=== PATIENT | female | born 1985 | race Caucasian/White ===

== ENCOUNTER 2017-05-30 14:15 | Emergency (ER) | payer OTHER ==
[~2017-05-30] VITALS: Ht 167.6 cm; Wt 100.7 kg
[2017-05-30] MEDS ORDERED: ULTRAM50 MG PO (14:25)
[2017-05-30] MEDS ORDERED: MINOCYCLINE HC100 M1 PO (14:27)
[2017-05-30] MEDS ORDERED: KETOROLAC TROME10 MG PO (17:25)
== END 2017-05-30 14:33 | disposition home or self-care (01) ==
LOC: ED 14:15
DX: Z00.8 Encounter for other general examination (principal)

== ENCOUNTER 2017-05-30 16:50 | Emergency (ER) | payer OTHER ==
[~2017-05-30] VITALS: Ht 167.6 cm; Wt 100.7 kg
[~2017-05-30 16:50] MED LIST: MINOCYCLINE HC100 M1 PO; ULTRAM50 MG PO
[2017-05-30] MEDS ORDERED: KETOROLAC TROME10 MG PO (17:25)
== END 2017-05-30 17:40 | disposition home or self-care (01) ==
LOC: ED 16:50
DX: S93.401A Sprain of unspecified ligament of right ankle, initial encounter (principal); F17.200 Nicotine dependence, unspecified, uncomplicated; Z98.51 Tubal ligation status; Z79.891 Long term (current) use of opiate analgesic; Z79.899 Other long term (current) drug therapy; X50.9XXA Other and unspecified overexertion or strenuous movements or postures, initial encounter; Y99.0 Civilian activity done for income or pay
CPT/HCPCS: 73610; 99283